=== PATIENT | female | born 1965 | race Caucasian/White ===

== ENCOUNTER → 2016-05-26 | Outpatient (CLI) | payer BC ==
--- NOTE | 2016-05-26 09:52 | RAD ---
Right upper quadrant abdominal ultrasound, 05/26/2016: History: Pain The gallbladder is within normal limits in size. There is no sonographic evidence of cholelithiasis. The gallbladder olea are not thickened. No bile duct dilatation is seen. The visualized portions of the liver, pancreas and right kidney are unremarkable. IMPRESSION: No significant abnormality is detected.
== END | disposition home or self-care (01) ==
LOC: US 08:45
PROVIDERS: ATTEND Physician Assistant Medical
DX: R10.11 Right upper quadrant pain (principal)
CPT/HCPCS: 76705

== ENCOUNTER → 2016-07-18 | Outpatient (CLI) | payer BC | END | disposition home or self-care (01) | LOC: CT 12:43 | PROVIDERS: ATTEND Physician Assistant Medical | DX: J01.01 Acute recurrent maxillary sinusitis (principal) | CPT/HCPCS: 70486 ==

== ENCOUNTER → 2016-11-28 | Outpatient (CLI) | payer BC ==
--- NOTE | 2016-11-28 15:07 | RAD ---
DATE: 11/28/2016 EXAM: DIGITAL SCREEN BILAT W/CAD HISTORY: Astigmatic screening mammogram. COMPARISON: Prior mammograms from 10/21/2015, 03/17/2014 This study was interpreted with the benefit of Computerized Aided Detection (CAD). The breast parenchyma is dense, which could reduce the sensitivity of mammography. Breast parenchyma level density D. FINDINGS: Bilateral CC and MLO views of the breasts were performed. Right breast: There are no suspicious microcalcifications, masses or areas of architectural distortion. Left breast: There are no suspicious microcalcifications, masses or areas of architectural distortion. Findings are stable from prior mammogram. IMPRESSION: Negative bilateral mammogram. Recommend annual screening mammography. BI-RADS CATEGORY: 1 NEGATIVE RECOMMENDED FOLLOW-UP: 12M 12 MONTH FOLLOW-UP PQRS compliance statement: Patient information was entered into a reminder system with a target due date 11/28/2017 for the next mammogram. Mammography is a sensitive method for finding small breast cancers, but it does not detect them all and is not a substitute for careful clinical examination. A negative mammogram does not negate a clinically suspicious finding and should not result in delay in biopsying a clinically suspicious abnormality. "Our facility is accredited by the [employer] Mammography Program."
== END | disposition home or self-care (01) ==
LOC: MAMMO 09:40
PROVIDERS: ATTEND Physician Assistant Medical
DX: Z12.31 Encounter for screening mammogram for malignant neoplasm of breast (principal)
CPT/HCPCS: G0202; 77067

== ENCOUNTER → 2017-06-04 | Outpatient (CLI) | payer BC ==
--- NOTE | 2017-06-05 09:08 | RAD ---
Right RIBS, 3 views, 06/04/2017: History: Fall, pain No rib fracture is identified. There is no evidence of an underlying pneumothorax, hemothorax or pulmonary infiltrate. IMPRESSION: No acute right rib abnormality is detected.
== END | disposition home or self-care (01) ==
LOC: PMG 16:05
PROVIDERS: ATTEND Family Medicine
DX: R07.81 Pleurodynia (principal)
CPT/HCPCS: 71100

== ENCOUNTER → 2018-03-11 | Outpatient (CLI) | payer BC ==
--- NOTE | 2018-03-11 14:18 | RAD ---
Examination: Ultrasound pelvis HISTORY: History of dysfunctional uterine bleeding COMPARISON: None available FINDINGS: The uterus measures 9.1 x 5.1 x 4.3 cm. The endometrium measures 3.4 mm in thickness. The left ovary measures 3.2 x 1.9 x 2.0 cm. There is a cystic structure identified in the left ovary measuring 2.3 cm. The right ovary measures 4.1 x 1.8 x 3.9 cm. There is a dominant follicle measuring 1.5 cm identified in the right ovary. IMPRESSION: 1. Left ovarian cyst measuring 2.3 cm. 2. 1.5 cm follicle right ovary. Electronically signed by: Nate Chambers MD (03/11/2018 2:13 PM) [place] [id number]
== END | disposition home or self-care (01) ==
LOC: US 12:31
PROVIDERS: ATTEND Physician Assistant Medical
DX: N83.202 Unspecified ovarian cyst, left side (principal)
CPT/HCPCS: 76830; 76856

== ENCOUNTER → 2019-04-14 | Outpatient (CLI) | payer BC ==
--- NOTE | 2019-04-14 19:08 | RAD ---
BILATERAL SCREENING MAMMOGRAM History: Routine screening. Comparison: 02/23/2011, 03/17/2014, 10/21/2015, 11/28/2016. Technique: Routine bilateral digital mammogram views were obtained. Findings: Breast Tissue Density D :The breasts are extremely dense, which lowers the sensitivity of mammography. There are no dominant masses, suspicious microcalcifications, or architectural distortion. IMPRESSION: No mammographic evidence of malignancy. Recommend routine screening. BI-RADS category 1: Negative. The images were reviewed with computer aided detection. Patient information is entered into the reminder system with a target due date for the next screening mammogram. Mammography is the most sensitive method for finding small breast cancers, but it does not detect them all and is not a substitute for careful clinical examination. A negative mammogram does not negate a clinically suspicious finding and should not result in delay in biopsying a clinically suspicious abnormality. "Our facility is accredited by the [employer] Mammography Program." Electronically signed by: James Pugh MD (04/14/2019 7:05 PM) [id number]
== END | disposition home or self-care (01) ==
LOC: MAMMO 09:29
PROVIDERS: ATTEND Physician Assistant Medical
DX: Z12.31 Encounter for screening mammogram for malignant neoplasm of breast (principal)
CPT/HCPCS: 77067

== ENCOUNTER → 2019-04-16 | Outpatient (CLI) | payer BC ==
--- NOTE | 2019-04-16 15:16 | RAD ---
AP and Lateral Views of the Chest 04/16/2019 12:00 AM Indication: Shortness of breath Comparison: chest radiograph of February 17, 2011 Findings: There is no focal consolidation or infiltrate identified. The cardiomediastinal silhouette is within normal limits. There is no evidence of pneumothorax or pleural effusion. No acute osseous abnormalities are identified. Impression: No evidence of acute cardiopulmonary process. Electronically signed by: Magdi Saab MD (04/16/2019 3:14 PM) [id number]
--- NOTE | 2019-04-16 17:04 | RAD ---
Examination: WRIST 3V RIGHT History: Right wrist pain Comparison/Correlation: None Findings: Total 3 images of the right wrist were obtained. Nonunion of the ulnar styloid is present. Correlate with previous trauma or developmental variant. No fracture or bony destruction. Soft tissues are unremarkable. Subtle sclerosis at the first carpometacarpal joint is present. Impression: Mild subchondral degenerative sclerosis of first carpometacarpal joint. Consider further imaging if occult process is a persistent concern. Electronically signed by: James Pugh MD (04/16/2019 5:01 PM) [id number]
== END | disposition home or self-care (01) ==
LOC: PMG 14:21
PROVIDERS: ATTEND Physician Assistant Medical
DX: M19.041 Primary osteoarthritis, right hand (principal); R06.02 Shortness of breath
CPT/HCPCS: 71046; 73110

== ENCOUNTER → 2019-10-29 | Outpatient (CLI) | payer BC ==
--- NOTE | 2019-10-29 15:44 | RAD ---
AP and Lateral Views of the Chest 10/29/2019 12:00 AM Indication: Reason: SOA / Spl. Instructions: / History: Comparison: Chest radiograph April 16, 2019 Findings: There is mild hyperinflation with flattening of the hemidiaphragms. Mild apical lucency is seen. No focal infiltrate, pneumothorax, or pleural effusion is seen. Heart size is normal. Bony thorax is grossly intact. IMPRESSION: 1. No evidence of acute cardiopulmonary process 2. Mild hyperinflation. Findings could reflect obstructive lung disease. Electronically signed by: Magdi Saab MD (10/29/2019 3:41 PM) [id number]
== END | disposition home or self-care (01) ==
LOC: DXRAD 14:40
PROVIDERS: ATTEND Physician Assistant
DX: J98.11 Atelectasis (principal)
CPT/HCPCS: 71046

== ENCOUNTER → 2020-08-24 | Outpatient (CLI) | payer BC ==
--- NOTE | 2020-08-24 14:06 | RAD ---
US PELVIS COMPLETE History: Reason: SEVERE PELVIC PAIN, PRESSURE / Spl. Instructions: / History: Comparison: None Technique: Grayscale and color Doppler imaging of the pelvis was performed using transabdominal and t ransvaginal technique. Findings: The uterus measures 8.8 x 5.9 x 4.5 cm. Uterus has an unremarkable appearance. The endometrial stri pe measures 4 mm. Right ovary measures 2.3 x 1.5 x 2.0 cm. Left ovary measures 2.7 x 1.6 x 1.7 cm. Normal Doppler flow to the ovaries. No adnexal masses are seen. IMPRESSION: 1. Unremarkable pelvic ultrasound. Electronically signed by: Hayes Oviedo DO (08/24/2020 2:03 PM) [id number]
== END ==
LOC: RAD 13:07
PROVIDERS: ATTEND Nurse Practitioner Family
DX: R10.2 Pelvic and perineal pain (principal)
CPT/HCPCS: 76856

== ENCOUNTER → 2020-09-17 | Day surgery (SDC) | payer BC ==
[~2020-09-17] MED LIST: ATOR20TA PO; DULO60CA6 PO; IPRATRPIUM/ALBUTEROL 0.5/2.5MG 3 ML NEBU. NEB PRN; IV RINGERS SOLUTION,LACTATED 1,000 ML IV SCH; LEVO112T2 PO; LIDOCAINE 2% PF 5 ML VIAL. ONE; MIDAZOLAM HCL PF 2 MG/2 ML VIAL. IV ONE; ONDANSETRON PF 4 MG/2 ML VIAL. IV PRN; PROPOFOL 10,000 MCG/ML (20ML) VIAL IV ONE; VALS160T3 PO
[2020-09-17 10:19] LABS: U PREG PATIENT NEGATIVE (NEG)
[2020-09-17 12:15] VITALS: BP 124/89
== END | disposition home or self-care (01) ==
LOC: SURG 09:53
PROVIDERS: ATTEND Internal Medicine Gastroenterology
DX: Z12.11 Encounter for screening for malignant neoplasm of colon (principal); Z86.010 Personal history of colon polyps; Z80.0 Family history of malignant neoplasm of digestive organs; K63.5 Polyp of colon; K57.30 Diverticulosis of large intestine without perforation or abscess without bleeding; K64.4 Residual hemorrhoidal skin tags; K64.0 First degree hemorrhoids; K29.70 Gastritis, unspecified, without bleeding; K21.00 Gastro-esophageal reflux disease with esophagitis, without bleeding; R12 Heartburn; K44.9 Diaphragmatic hernia without obstruction or gangrene; I10 Essential (primary) hypertension; J45.909 Unspecified asthma, uncomplicated; E78.00 Pure hypercholesterolemia, unspecified; E11.9 Type 2 diabetes mellitus without complications; E07.9 Disorder of thyroid, unspecified; F41.9 Anxiety disorder, unspecified; F17.210 Nicotine dependence, cigarettes, uncomplicated; Z98.890 Other specified postprocedural states; Z79.899 Other long term (current) drug therapy; Z20.822 Contact with and (suspected) exposure to COVID-19; Z91.040 Latex allergy status; Z88.8 Allergy status to other drugs, medicaments and biological substances
CPT/HCPCS: 43239; 45380; 81025; 82947; 88305; 88342; C9803; J2001; J2704; J7120; U0003

== ENCOUNTER → 2020-09-27 | Outpatient (CLI) | payer BC ==
[2020-09-17 12:15] VITALS: BP 124/89
[~2020-09-27] MED LIST changes: -IPRATRPIUM/ALBUTEROL 0.5/2.5MG 3 ML NEBU. NEB PRN; -IV RINGERS SOLUTION,LACTATED 1,000 ML IV SCH; -LIDOCAINE 2% PF 5 ML VIAL. ONE; -MIDAZOLAM HCL PF 2 MG/2 ML VIAL. IV ONE; -ONDANSETRON PF 4 MG/2 ML VIAL. IV PRN; -PROPOFOL 10,000 MCG/ML (20ML) VIAL IV ONE
--- NOTE | 2020-09-27 11:51 | RAD ---
EXAM: Pelvic sonogram. HISTORY: Dysfunctional uterine bleeding. TECHNIQUE: Sonographic imaging of the pelvis was performed. COMPARISON: None. FINDINGS: The uterus measures 7.7 x 4.6 x 4.1 cm. The endometrial stripe measures 3.4 mm thickness. T he ovaries are normal in size for the suspected postmenopausal status of patient. There is normal ova rachna blood flow. There is no pelvic free fluid. IMPRESSION: Unremarkable pelvic sonogram. Electronically signed by: Aleja Calderon MD (09/27/2020 11:49 AM) [id number]
== END ==
LOC: US 10:30
PROVIDERS: ATTEND Physician Assistant Medical
DX: N93.8 Other specified abnormal uterine and vaginal bleeding (principal)
CPT/HCPCS: 76856

== ENCOUNTER → 2021-05-12 | Outpatient (CLI) | payer OTHER ==
[2020-09-17 12:15] VITALS: BP 124/89
[~2021-05-12] MED LIST changes: -DULO60CA6 PO; +DULO60CA7 PO
--- NOTE | 2021-05-12 15:42 | RAD ---
EXAMINATION: XR ELBOW_RIGHT CLINICAL HISTORY: Right elbow pain. TECHNIQUE: XR ELBOW_RIGHT Number of Images/Views: 2 COMPARISON: None FINDINGS: Joint spaces and alignment maintained. No acute fracture. Mild irregularity of the medial femoral con dyle, nonspecific but could be related to remote trauma or chronic reactive changes associated with t endinosis of the common flexor origin. No focal soft tissue swelling. IMPRESSION: No acute osseous abnormality. Nonspecific mild irregularity of the medial epicondyle as described Electronically signed by: Yovany Loera DO (05/12/2021 3:39 PM) [id number]
== END ==
LOC: RAD 10:22
PROVIDERS: ATTEND Physician Assistant
DX: M25.521 Pain in right elbow (principal)
CPT/HCPCS: 73070

== ENCOUNTER → 2021-06-20 | Outpatient (CLI) | payer OTHER ==
[2020-09-17 12:15] VITALS: BP 124/89
--- NOTE | 2021-06-20 13:45 | RAD ---
Right ankle x-rays 3 views HISTORY: Right ankle injury one week ago, pain. FINDINGS: There is lateral ankle soft tissue swelling. There is an acute traumatic nondisplaced fract ure of the inferolateral cortex of the lateral malleolus likely near the attachment point of one of t he lateral ankle ligaments. The tibial plafond, medial malleolus and talus are intact. No dislocation . IMPRESSION: Acute nondisplaced fracture of the lateral malleolus. Electronically signed by: Wil Garrido MD (06/20/2021 1:42 PM) [email or web address]
== END ==
LOC: RAD 13:18
PROVIDERS: ATTEND Nurse Practitioner Family
DX: S82.64XA Nondisplaced fracture of lateral malleolus of right fibula, initial encounter for closed fracture (principal); M79.89 Other specified soft tissue disorders; X58.XXXA Exposure to other specified factors, initial encounter; Y93.89 Activity, other specified; Y92.89 Other specified places as the place of occurrence of the external cause; Y99.8 Other external cause status
CPT/HCPCS: 73610